=== PATIENT | female | born 1995 ===

== ENCOUNTER 2021-11-29 22:02 | Inpatient (IN) | payer BC ==
[2021-11-29] MEDS ORDERED: Misoprostol 200 MCG Tab PO PRN (22:25)
[2021-11-29] MEDS ORDERED: Water For Irrigation,Sterile 1,000 ML Container IRR PRN (22:25)
[2021-11-29] MEDS ORDERED: Sodium Chloride 0.9% 2.5 ML Syringe FLUSH PRN (22:25)
[2021-11-29] MEDS ORDERED: Sodium Chloride 0.9% 20 ML SDV IV PRN (22:25)
[2021-11-29] MEDS ORDERED: Lidocaine 1% 50 ML MDV INJECT PRN (22:25)
[2021-11-29] MEDS ORDERED: Methylergonovine 0.2 MG/1 ML Amp IM PRN (22:25)
[2021-11-29] MEDS ORDERED: Ondansetron 4 MG/2 ML SDV IVPUSH PRN (22:25)
[2021-11-29] MEDS ORDERED: Tranexamic Acid 1,000 MG in Sodium Chloride 0.9% 100 ML IV PRN (22:25)
[2021-11-29] MEDS ORDERED: Carboprost Tromethamine 250 MCG/1 ML Amp IM PRN (22:25)
[2021-11-29] MEDS ORDERED: Sodium Chloride 0.9% 10 ML Syringe FLUSH PRN (22:25)
[2021-11-29] MEDS ORDERED: Betamethasone Acetate/Betamethasone Sod Phosphate 30 MG/5 ML MDV IM ONE (22:28)
[2021-11-29] MEDS ORDERED: Oxytocin/0.9 % Sodium Chloride 30 UNIT/500 ML BAG IV SCH (22:30)
[2021-11-29] MEDS ORDERED: Ampicillin 2 GM in Sodium Chloride 0.9% 100 ML IV ONE (23:00)
[2021-11-29] MEDS: Labetalol 100 MG/20 ML MDV IVPUSH PRN ×2 (23:05→23:35)
[2021-11-29] MEDS: Lactated Ringers 1,000 ML IV SCH (23:09)
[2021-11-29 23:23] LABS: BLOOD UREA NITROGEN,BUN 13 mg/dL (7.0-18.0); CARBON DIOXIDE,CO2 22.6 mmol/L (21.0-32.0); CHLORIDE,CL 104 mmol/L (98-107); GLUCOSE RANDOM 93 mg/dL (74-106); POTASSIUM,K 4.5 mmol/L (3.5-5.1); SODIUM,NA 136 mmol/L (136-145)
[2021-11-30] MEDS ORDERED: Calcium Gluconate 10% 1 GM/10 ML SDV IV PRN (00:35)
[2021-11-30] MEDS ORDERED: Magnesium Sulfate/Water 4 GM in Premix Bag 1 BAG IV ONE (00:35)
[2021-11-30] MEDS ORDERED: Sodium Chloride 0.9% 1,000 ML IV SCH (01:00)
[2021-11-30] MEDS: Magnesium Sulfate/Water 20 GM/500 ML BAG IV SCH ×2 (01:07→11:23)
[2021-11-30] MEDS: Butorphanol 1 MG/ML SDV IVPUSH PRN ×4 (01:30→13:09)
[2021-11-30] MEDS: Ampicillin 1 GM in Sodium Chloride 0.9% 50 ML IV SCH ×2 (03:14→07:32)
[2021-11-30] MEDS ORDERED: Calcium Carbonate 500 MG Tab.Chew PO PRN (04:10)
[2021-11-30] MEDS: Lactated Ringers 1,000 ML IV SCH (07:31)
[2021-11-30] MEDS ORDERED: Ropivacaine in NACL,ISO-OSM/PF 400 ML ONE (07:32)
[2021-11-30] MEDS ORDERED: Tranexamic Acid 1,000 MG in Sodium Chloride 0.9% 100 ML IV PRN (10:25)
[2021-11-30] MEDS ORDERED: Ibuprofen 800 MG Tab PO PRN (10:25)
[2021-11-30] MEDS ORDERED: Witch Hazel Medicated Pads 40/Jar TOP PRN (10:25)
[2021-11-30] MEDS ORDERED: Bisacodyl 10 MG Supp RECTAL PRN (10:25)
[2021-11-30] MEDS ORDERED: Ibuprofen 400 MG Tab PO PRN (10:25)
[2021-11-30] MEDS ORDERED: Lanolin 100% Cream 7 GM Tube TOP PRN (10:25)
[2021-11-30] MEDS ORDERED: Acetaminophen 500 MG Tab PO PRN (10:25)
[2021-11-30] MEDS ORDERED: Sodium Chloride 0.9% 100 ML ONE (13:00)
[2021-11-30] MEDS: Acetaminophen 500 MG Tab PO PRN (14:17)
[2021-11-30] MEDS: Labetalol 100 MG/20 ML MDV IVPUSH PRN (14:20)
[2021-11-30] MEDS: Benzocaine/Menthol 20%-0.5% Spray 78 GM Cannister TOP PRN (14:25)
[2021-11-30] MEDS ORDERED: Promethazine 25 MG/ML SDV IM PRN (17:15)
[2021-11-30] MEDS: Docusate Sodium 100 MG Cap PO PRN (21:27)
[2021-12-01] MEDS: Acetaminophen 500 MG Tab PO PRN ×2 (00:17→10:02)
[2021-12-01] MEDS: Magnesium Sulfate/Water 20 GM/500 ML BAG IV SCH (00:28)
[2021-12-01] MEDS: Docusate Sodium 100 MG Cap PO PRN ×2 (10:02→21:15)
[2021-12-01] MEDS: Labetalol 100 MG Tab PO SCH (21:15)
[2021-12-02] MEDS ORDERED: Ferrous Sulfate 325 MG Tab PO SCH (08:00)
[2021-12-02] MEDS: Labetalol 100 MG Tab PO SCH (08:53)
[2021-12-02] MEDS: Benzocaine/Menthol 20%-0.5% Spray 78 GM Cannister TOP PRN (10:58)
== END 2021-12-02 11:33 | disposition home or self-care (01) | DRG 560 ==
LOC: MW.OBCHECK 22:02 → MW.OB 22:05 → MW.OBCHECK 22:06 → MW.OB 22:07 → MW.OBCHECK 22:07 → MW.OB 23:23 → OBSVTOIN 12-01 09:25
PROVIDERS: ADMIT Obstetrics & Gynecology; ATTEND Obstetrics & Gynecology
PROC: 10E0XZZ Delivery of Products of Conception, External Approach (ICD-10-PCS; principal; 2021-11-30)
PROC: 3E0R3BZ Introduction of Anesthetic Agent into Spinal Canal, Percutaneous Approach (ICD-10-PCS; 2021-11-30)
PROC: 10907ZC Drainage of Amniotic Fluid, Therapeutic from Products of Conception, Via Natural or Artificial Opening (ICD-10-PCS; 2021-11-30)
PROC: 30233N1 Transfusion of Nonautologous Red Blood Cells into Peripheral Vein, Percutaneous Approach (ICD-10-PCS; 2021-11-30)
PROC: 0HQ9XZZ Repair Perineum Skin, External Approach (ICD-10-PCS; 2021-11-30)
PROC: 00HU33Z Insertion of Infusion Device into Spinal Canal, Percutaneous Approach (ICD-10-PCS; 2021-11-30)
DX: O60.14X0 Preterm labor third trimester with preterm delivery third trimester, not applicable or unspecified (principal); O99.02 Anemia complicating childbirth; O14.14 Severe pre-eclampsia complicating childbirth; D64.9 Anemia, unspecified; O72.1 Other immediate postpartum hemorrhage; O70.0 First degree perineal laceration during delivery; O98.52 Other viral diseases complicating childbirth; U07.1 COVID-19; Z86.16 Personal history of COVID-19; Z3A.36 36 weeks gestation of pregnancy; Z37.0 Single live birth
CPT/HCPCS: 36415; 36430; 59025; 59409; 80053; 82570; 82803; 83735; 84156; 84550; 85007; 85014; 85018; 85027; 86592; 86850; 86900; 86901; 86920; A9270-GY; J0290; J0595; J0702; J2001; J2405; J2795; J3475; J3490; J7120; P9016; U0002

== ENCOUNTER 2023-07-18 14:43 | Inpatient (IN) | payer BC ==
[2023-07-18 15:11] LABS: BASOPHILS ABSOLUTE AUTO 0.04 K/uL (0.00-0.20); BASOPHILS PERCENT AUTO 0.4 % (0.0-1.0); EOSINOPHILS ABSOLUTE AUTO 0.07 K/uL (0.00-0.45); EOSINOPHILS PERCENT AUTO 0.6 % (0.0-6.0); HEMATOCRIT 34.3 % (37.0-47.0); IMMATURE GRAN ABSOLUTE AUTO 0.05 K/uL (0.00-0.05); IMMATURE GRAN PERCENT AUTO 0.5 % (0.0-0.4); LYMPHOCYTES ABSOLUTE AUTO 2.93 K/uL (1.00-4.80); LYMPHOCYTES PERCENT AUTO 26.7 % (24.0-44.0); MEAN CORPUSCULAR HEMOGLOBIN 31.3 pg (28.0-32.0); MEAN CORPUSCULAR VOLUME 89.3 fL (83.0-99.0); MEAN PLATELET VOLUME 12.4 fL (9.4-12.3); MONOCYTES ABSOLUTE AUTO 0.99 K/uL (0.00-0.80); NEUTROPHILS ABSOLUTE AUTO 6.91 K/uL (1.80-7.70); NEUTROPHILS PERCENT AUTO 62.8 % (41.0-71.0); PLATELET COUNT,PLT 219 K/uL (150-400); RED BLOOD CELL COUNT 3.84 M/uL (4.10-5.30); WHITE BLOOD CELL COUNT,WBC 10.99 K/uL (3.9-11.3)
[2023-07-18 15:35] LABS: A/G RATIO 0.6 (0.9-1.6); ALBUMIN 2.5 g/dL (3.4-5.0); BILIRUBIN TOTAL 0.2 mg/dL (0.2-1.0); CALCIUM 8.5 mg/dL (8.5-10.1); CARBON DIOXIDE,CO2 24.2 mmol/L (21.0-32.0); CREATININE 0.8 mg/dL (0.6-1.0); EST CRCL DRUG DOSING (CG) 97.13 mL/min; PROTEIN TOTAL,TP 6.7 g/dL (6.4-8.2); URIC ACID 6.2 mg/dL (2.6-7.2)
[2023-07-18] MEDS ORDERED: Ampicillin 2 GM in Sodium Chloride 0.9% 100 ML IV ONE (20:15)
[2023-07-18] MEDS ORDERED: Carboprost Tromethamine 250 MCG/1 mL Vial IM PRN (20:15)
[2023-07-18] MEDS ORDERED: Tranexamic Acid IN NACL,ISO-OS 1,000 MG in Premix Bag 1 BAG IV PRN ×2 (20:15)
[2023-07-18] MEDS ORDERED: Sodium Chloride 0.9% 10 ML Syringe FLUSH PRN ×2 (20:15→20:21)
[2023-07-18] MEDS ORDERED: Misoprostol 200 MCG Tab PO PRN (20:15)
[2023-07-18] MEDS ORDERED: Butorphanol 1 MG/ML SDV IVPUSH PRN (20:15)
[2023-07-18] MEDS ORDERED: Water For Irrigation,Sterile 1,000 ML Container IRR PRN (20:15)
[2023-07-18] MEDS ORDERED: Oxytocin/0.9 % Sodium Chloride 30 UNIT/500 ML BAG IV SCH (20:15)
[2023-07-18] MEDS ORDERED: Sodium Chloride 0.9% 20 ML SDV IV PRN ×2 (20:15→20:21)
[2023-07-18] MEDS ORDERED: Methylergonovine 0.2 MG/1 ML Amp IM PRN (20:15)
[2023-07-18] MEDS ORDERED: Lactated Ringers 1,000 ML IV SCH (20:15)
[2023-07-18] MEDS ORDERED: Lidocaine 1% 50 ML MDV INJECT PRN (20:15)
[2023-07-18] MEDS ORDERED: Sodium Chloride 0.9% 2.5 ML Syringe FLUSH PRN ×2 (20:15→20:21)
[2023-07-18] MEDS ORDERED: Labetalol 100 MG/20 ML MDV IVPUSH PRN (20:21)
[2023-07-19] MEDS ORDERED: Acetaminophen 325 MG Tab PO PRN (00:16)
[2023-07-19] MEDS ORDERED: Misoprostol 25 MCG (1/4 of 100 MCG) Tab VAG PRN ×2 (00:16)
[2023-07-19] MEDS ORDERED: Terbutaline 1 MG/ML SDV SUBCUT PRN (00:16)
[2023-07-19] MEDS ORDERED: Oxytocin/0.9 % Sodium Chloride 30 UNIT/500 ML BAG IV SCH (00:30)
[2023-07-19] MEDS ORDERED: Ampicillin 2 GM in Sodium Chloride 0.9% 50 ML IV SCH (01:15)
[2023-07-19] MEDS ORDERED: Ampicillin 2 GM in Sodium Chloride 0.9% 100 ML IV ONE (01:15)
[2023-07-19] MEDS ORDERED: Ondansetron 4 MG/2 ML SDV IVPUSH PRN ×2 (01:57→21:06)
[2023-07-19] MEDS ORDERED: Acetaminophen 500 MG Tab PO PRN (02:00)
[2023-07-19] MEDS: Calcium Carbonate 500 MG Tab.Chew PO PRN ×2 (06:01→12:57)
[2023-07-19] MEDS: Ampicillin 1 GM in Sodium Chloride 0.9% 50 ML IV SCH ×2 (06:01→09:58)
[2023-07-19] MEDS: Nalbuphine 10 MG/0.5 ML Syringe IVPUSH PRN ×2 (09:10→10:29)
[2023-07-19] MEDS ORDERED: Bupivacaine 0.5% 10 ML SDV ONE (10:51)
[2023-07-19] MEDS ORDERED: Ropivacaine HCl/PF 200 ML ONE (10:51)
[2023-07-19] MEDS ORDERED: Phenylephrine HCl 0.5 MG/5 ML AMP ONE ×2 (10:51→19:50)
[2023-07-19] MEDS ORDERED: ePHEDrine 50 MG/ML SDV IVPUSH PRN ×3 (11:21→21:06)
[2023-07-19] MEDS ORDERED: Phenylephrine HCl 0.5 MG/5 ML AMP IVPUSH PRN (11:21)
[2023-07-19] MEDS ORDERED: Ropivacaine HCl/PF 400 MG in Premix Bag 1 BAG EPIDUR SCH (11:30)
[2023-07-19] MEDS ORDERED: Lanolin 100% Cream 7 GM Tube TOP PRN (15:20)
[2023-07-19] MEDS ORDERED: Benzocaine/Menthol 20%-0.5% Spray 78 GM Cannister TOP PRN (15:20)
[2023-07-19] MEDS ORDERED: Witch Hazel Medicated Pads 40/Jar TOP PRN (15:20)
[2023-07-19] MEDS ORDERED: oxyCODONE 5 MG Tab PO PRN (15:20)
[2023-07-19] MEDS ORDERED: Hydrocortisone 2.5% Crm 30 GM Tube TOP PRN (15:20)
[2023-07-19 15:29] LABS: PH,UMBILICAL ARTERIAL 7.224 (7.18-7.38); PH,UMBILICAL VENOUS 7.279 (7.25-7.45)
[2023-07-19] MEDS: Ibuprofen 800 MG Tab PO PRN (16:17)
[2023-07-19] MEDS: Docusate Sodium 100 MG Cap PO SCH (16:17)
[2023-07-19] MEDS ORDERED: Carboprost Tromethamine 250 MCG/1 mL Vial ONE (18:38)
[2023-07-19] MEDS ORDERED: Tranexamic Acid 1,000 MG/10 ML Vial ONE (18:39)
[2023-07-19] MEDS ORDERED: Carboprost Tromethamine 250 MCG/1 mL Vial IM ONE (18:45)
[2023-07-19] MEDS: Acetaminophen 500 MG Tab PO PRN (18:49)
[2023-07-19] MEDS ORDERED: Morphine 4 MG/ML Syringe ONE (18:56)
[2023-07-19] MEDS ORDERED: Morphine 4 MG/ML Syringe IVPUSH ONE (18:56)
[2023-07-19] MEDS ORDERED: Naloxone 0.4 MG/ML SDV IVPUSH PRN ×2 (18:56→21:06)
[2023-07-19 19:31] LABS: HEMATOCRIT 29.3 % (37.0-47.0); HEMOGLOBIN 10.7 g/dL (12.0-16.0); MEAN CORPUSCULAR HEMOGLOBIN 32.1 pg (28.0-32.0); MEAN CORPUSCULAR HGB CONC 36.5 g/dL (32.0-36.0); MEAN PLATELET VOLUME 12.7 fL (9.4-12.3); PLATELET COUNT,PLT 212 K/uL (150-400); RED BLOOD CELL COUNT 3.33 M/uL (4.10-5.30)
[2023-07-19] MEDS ORDERED: Midazolam 1 MG/ML 2 ML SDV ONE (19:40)
[2023-07-19] MEDS ORDERED: fentaNYL 100 MCG/2 ML SDV ONE (19:40)
[2023-07-19] MEDS ORDERED: Ondansetron 4 MG/2 ML SDV ONE (19:41)
[2023-07-19 19:58] LABS: INR 0.94 (0.86-1.11); PTT,PARTIAL THROMBOPLSTIN TIME 28.2 SEC (23.9-30.7)
[2023-07-19 20:02] LABS: A/G RATIO 0.6 (0.9-1.6); ALBUMIN 2.1 g/dL (3.4-5.0); BILIRUBIN TOTAL 0.3 mg/dL (0.2-1.0); CALCIUM 8.3 mg/dL (8.5-10.1); CARBON DIOXIDE,CO2 22.2 mmol/L (21.0-32.0); EST CRCL DRUG DOSING (CG) 77.71 mL/min; PROTEIN TOTAL,TP 5.8 g/dL (6.4-8.2)
[2023-07-19] MEDS ORDERED: ceFAZolin 1 GM Vial ONE (20:25)
[2023-07-19] MEDS ORDERED: Morphine 2 MG/ML SYRINGE IVPUSH PRN (21:06)
[2023-07-19] MEDS ORDERED: droPERidol 5 MG/2 ML SDV IVPUSH PRN (21:06)
[2023-07-19] MEDS ORDERED: HYDROmorphone 1 MG/ML Syringe IVPUSH PRN (21:06)
[2023-07-19] MEDS ORDERED: fentaNYL 50 MCG/ML SDV IVPUSH PRN (21:06)
[2023-07-19] MEDS ORDERED: Albuterol 0.083% 2.5 MG/3 ML Neb Soln NEB PRN (21:06)
[2023-07-19] MEDS ORDERED: Metoclopramide 10 MG/2 ML SDV IVPUSH PRN (21:06)
[2023-07-20] MEDS: Acetaminophen 500 MG Tab PO PRN ×5 (00:29→23:58)
[2023-07-20] MEDS: Ibuprofen 800 MG Tab PO PRN ×4 (03:14→21:00)
[2023-07-20] MEDS: Docusate Sodium 100 MG Cap PO SCH ×2 (03:30→15:24)
[2023-07-20 06:03] LABS: HEMATOCRIT 21.5 % (37.0-47.0); HEMOGLOBIN 7.6 g/dL (12.0-16.0); MEAN CORPUSCULAR HEMOGLOBIN 31.7 pg (28.0-32.0); MEAN CORPUSCULAR HGB CONC 35.3 g/dL (32.0-36.0); MEAN CORPUSCULAR VOLUME 89.6 fL (83.0-99.0); PLATELET COUNT,PLT 162 K/uL (150-400); WHITE BLOOD CELL COUNT,WBC 14.39 K/uL (3.9-11.3)
[2023-07-20] MEDS: Prenatal Multivitamin with Calcium/Folic Acid/Iron Tab PO SCH (08:32)
[2023-07-20] MEDS: Ferrous Sulfate 325 MG Tab PO SCH ×3 (08:32→17:34)
[2023-07-21] MEDS: Docusate Sodium 100 MG Cap PO SCH (03:30)
[2023-07-21 06:35] LABS: HEMATOCRIT 21.8 % (37.0-47.0); HEMOGLOBIN 7.3 g/dL (12.0-16.0); MEAN CORPUSCULAR HEMOGLOBIN 31.1 pg (28.0-32.0); MEAN CORPUSCULAR HGB CONC 33.5 g/dL (32.0-36.0); MEAN CORPUSCULAR VOLUME 92.8 fL (83.0-99.0); MEAN PLATELET VOLUME 12.3 fL (9.4-12.3); PLATELET COUNT,PLT 178 K/uL (150-400); RED BLOOD CELL COUNT 2.35 M/uL (4.10-5.30); WHITE BLOOD CELL COUNT,WBC 10.63 K/uL (3.9-11.3)
[2023-07-21] MEDS: Prenatal Multivitamin with Calcium/Folic Acid/Iron Tab PO SCH (08:09)
[2023-07-21] MEDS: Ferrous Sulfate 325 MG Tab PO SCH ×2 (08:09→11:15)
[2023-07-21] MEDS: Ibuprofen 800 MG Tab PO PRN (08:10)
== END 2023-07-21 12:20 | disposition home or self-care (01) | DRG 560 ==
LOC: MW.OBCHECK 14:43 → MW.OB 14:44 → MW.OBCHECK 07-19 14:54 → MW.OB 07-19 14:55 → OBSVTOIN 07-19 15:21 → MW.OB 07-20 07:17
PROVIDERS: ADMIT Obstetrics & Gynecology; ATTEND Obstetrics & Gynecology
PROC: 0HQ9XZZ Repair Perineum Skin, External Approach (ICD-10-PCS; 2023-07-19)
PROC: 3E0R3BZ Introduction of Anesthetic Agent into Spinal Canal, Percutaneous Approach (ICD-10-PCS; 2023-07-19)
PROC: 00HU33Z Insertion of Infusion Device into Spinal Canal, Percutaneous Approach (ICD-10-PCS; 2023-07-19)
PROC: 0UCG7ZZ Extirpation of Matter from Vagina, Via Natural or Artificial Opening (ICD-10-PCS; 2023-07-19)
PROC: 10E0XZZ Delivery of Products of Conception, External Approach (ICD-10-PCS; principal; 2023-07-19 19:45)
DX: O99.824 Streptococcus B carrier state complicating childbirth (principal); Z37.0 Single live birth; Z3A.37 37 weeks gestation of pregnancy; O70.0 First degree perineal laceration during delivery; D62 Acute posthemorrhagic anemia; O99.02 Anemia complicating childbirth; O14.04 Mild to moderate pre-eclampsia, complicating childbirth
CPT/HCPCS: 36415; 51702; 59025; 80053; 82803; 84550; 85025; 85027; 85384; 85610; 85730; 86592; 86850; 86900; 86901; 86920; A9270-GY; J0290; J0665; J0690; J2250; J2270; J2300; J2371; J2405; J2590; J2795; J3010; J3490; J7120